=== PATIENT | male | born 1970 | race Caucasian/White ===

== ENCOUNTER 2019-12-22 23:31 | Emergency (ER) | payer OTHER ==
[~2019-12-22] VITALS: Ht 182.9 cm; Wt 83.9 kg
[~2019-12-22 23:31] MED LIST: IBUP-1955
[2019-12-22 23:35] VITALS: BP 136/91
== END 2019-12-23 00:10 | disposition home or self-care (01) ==
LOC: ER 23:41
DX: R21 Rash and other nonspecific skin eruption (principal); F12.90 Cannabis use, unspecified, uncomplicated; Z98.890 Other specified postprocedural states; Z60.2 Problems related to living alone